=== PATIENT | female | born 1975 | race Hispanic/Latino ===

== ENCOUNTER 2023-08-12 09:25 | Emergency (ER) | payer SELFPAY | END 2023-08-12 10:42 | disposition home or self-care (01) | LOC: ERS 09:25 | DX: J06.9 Acute upper respiratory infection, unspecified (principal); R52 Pain, unspecified; R11.0 Nausea; Z87.891 Personal history of nicotine dependence | CPT/HCPCS: 99282 ==

== ENCOUNTER 2024-09-08 06:05 | Emergency (ER) | payer OTHER ==
[2024-09-08] MEDS ORDERED: Mag-Al 1200 mg/1200 mg/30 ML UDCUP ONE (06:45)
[2024-09-08] MEDS ORDERED: Lidocaine Viscous Sol 2% 15 ml UD Cup ONE (06:45)
[2024-09-08] MEDS ORDERED: Aspirin Chewable 81 MG TAB ONE (06:46)
[2024-09-08] MEDS ORDERED: Famotidine/PF 20 mg/2ml Vial ONE (06:46)
[2024-09-08 06:49] LABS: #Basophils 0.05 10x3/uL (0.0-0.2); %Basophils 0.9 % (0.0-1.0); %Lymphocytes 39.6 % (21.0-51.0); %Monocytes 7.4 % (0.0-10.0); %Neutrophils 48.9 % (42.0-75.0); Hematocrit 42.3 % (36.0-47.0); Mean Corpuscular HGB CONC 35.5 g/dL (32.0-36.0); Mean Corpuscular Hemoglobin 32.7 pg (27.0-31.0); Mean Corpuscular Volume 92.2 fL (78.0-98.0); Mean Platelet Volume 10.3 fL (7.4-10.4); Platelet Count 244 10x3/uL (130-400); RBC Distribution Width 12.6 % (11.5-14.5); Red Blood Cell (RBC) Count 4.59 mill/uL (4.20-5.40)
[2024-09-08 07:04] LABS: BHCG - Serum Negative (NEGATIVE); Pregs Control Background? CLEAR/WHITE (CLR/WHITE); Pregs Control Bar Appear? YES (CONTROL BAR)
[2024-09-08 07:11] LABS: ALT (SGPT) 14 U/L (Less than 34); AST (SGOT) 18 U/L (11-34); Albumin 3.9 g/dL (3.1-4.5); Alkaline Phosphatase 77 U/L (40-110); Anion Gap 15 mmol/L (10-20); BUN (Urea Nitrogen) 15 mg/dL (7.0-18.7); Bilirubin, Total 0.3 mg/dL (0.3-1.2); Calc. Creatinine Clearance 0 mL/min (70-130); Carbon Dioxide 20 mmol/L (22-29); Chloride 110 mmol/L (98-107); Estimated GFR 107; Globulin 3.2 g/dL (2.4-3.5); Glucose 117 mg/dL (70-105); Lipase 51 U/L (8-78); Potassium 3.8 mmol/L (3.5-5.1); Protein, Total 7.1 g/dL (6.0-8.3); Sodium 141 mmol/L (136-145)
[2024-09-08 07:13] LABS: Troponin I Less than 0.010 ng/mL (< 0.028)
[2024-09-08 09:40] LABS: Troponin I Less than 0.010 ng/mL (< 0.028)
== END 2024-09-08 10:35 | disposition home or self-care (01) ==
LOC: ERS 06:05
DX: R07.2 Precordial pain (principal); F41.8 Other specified anxiety disorders; Z55.6 Problems related to health literacy; Z87.891 Personal history of nicotine dependence
CPT/HCPCS: 36415; 71045; 80053; 83690; 83735; 83880; 84484; 84703; 85025; 85379; 93005; 96374; J3490